=== PATIENT | male | born 1940 | race Caucasian/White ===

== ENCOUNTER 2020-02-23 06:52 | Outpatient (CLI) | payer MEDICARE | END 2020-02-23 23:59 | disposition home or self-care (01) | LOC: LAB 06:52 | PROVIDERS: ATTEND Ophthalmology | DX: Z01.812 Encounter for preprocedural laboratory examination (principal); Z20.828 Contact with and (suspected) exposure to other viral communicable diseases ==

== ENCOUNTER 2020-02-25 06:33 | Day surgery (SDC) | payer MEDICARE, BC ==
[~2020-02-25 06:33] MED LIST: BALANCED SALT IRRIG SOLN COMB1 500 ML, EPINEPHRINE-PF 1:1000 0.5 MG IO ONE
[2020-02-25] MEDS ORDERED: ONDANSETRON 4 MG/2 ML VIAL IV ONE (06:34)
[2020-02-25] MEDS ORDERED: KETOROLAC 0.5% OPHT DROP 3 ML BOTTLE ONE (06:48)
[2020-02-25] MEDS ORDERED: PHENYLEPHRINE 2.5% OPHT DROP 2 ML BOTTLE ONE (06:49)
[2020-02-25] MEDS ORDERED: CYCLOPENTOLATE 1% OPHT DROP 2 ML BOTTLE ONE (06:49)
[2020-02-25] MEDS ORDERED: CIPROFLOXACIN 0.3% OPHT DROP 2.5 ML BOTTLE ONE (06:49)
[2020-02-25] MEDS ORDERED: LIDOCAINE HCL 2% 20 ML VIAL ONE (06:50)
[2020-02-25] MEDS ORDERED: TROPICAMIDE 1% OPHT DROP 3 ML BOTTLE ONE (06:51)
[2020-02-25] MEDS ORDERED: BALANCED SALT IRRIG SOLN COMB1 500 ML ONE (06:52)
[2020-02-25] MEDS ORDERED: BALANCED SALT IRRIG SOLN COMB2 15 ML IRRIG.SOLN ONE (06:52)
[2020-02-25] MEDS ORDERED: HYALURONIDASE,OVINE 200 UNITS/ML VIAL ONE (06:53)
[2020-02-25] MEDS ORDERED: BUPIVACAINE PF 0.5% 30 ML VIAL ONE (06:53)
[2020-02-25] MEDS ORDERED: MOXIFLOXACIN HCL 3 ML OPHT DROPS ONE (06:55)
[2020-02-25] MEDS ORDERED: TRYPAN BLUE 0.5 ML DISP.SYRIN ONE (06:56)
[2020-02-25] MEDS ORDERED: ACETYLCHOLINE CHLORIDE 1% OPHT 1 EA KIT ONE (06:56)
[2020-02-25] MEDS ORDERED: HYALURONATE SODIUM 12.8 MG/0.8 ML DISP.SYRIN ONE (06:56)
[2020-02-25] MEDS ORDERED: TIMOLOL MALEATE 0.5% OPHT DROP 5 ML BOTTLE ONE (06:57)
[2020-02-25] MEDS ORDERED: NEO/POLYMYX B/DEXAME OPHT OINT 3.5 GM TUBE ONE (07:07)
[2020-02-25] MEDS ORDERED: FENTANYL CITRATE 100 MCG/2 ML AMPUL ONE (07:58)
== END 2020-02-25 10:00 | disposition home or self-care (01) ==
LOC: DS 06:33
PROVIDERS: ATTEND Ophthalmology
DX: H25.89 Other age-related cataract (principal); E03.9 Hypothyroidism, unspecified; E78.5 Hyperlipidemia, unspecified; I11.0 Hypertensive heart disease with heart failure; I50.9 Heart failure, unspecified; I25.10 Atherosclerotic heart disease of native coronary artery without angina pectoris; Z79.899 Other long term (current) drug therapy; Z98.890 Other specified postprocedural states; Z72.89 Other problems related to lifestyle; Z95.5 Presence of coronary angioplasty implant and graft; Z88.8 Allergy status to other drugs, medicaments and biological substances
CPT/HCPCS: 66984; 71045; J0171; J2405; J3010; J3471; J3490; J7120; J7321; V2632; A4663; Q9968